=== PATIENT | male | born 1935 | race Caucasian/White ===

== ENCOUNTER 2021-04-02 15:09 | Emergency (ER) | payer MEDICARE ==
[~2021-04-02 15:09] MED LIST: ASPIRIN CHEWABL81 MG PO; COLACE100 MG PO; CRESTOR10 MG PO; FLONASE ALLER15.8 ML; INCRUSE ELLI62.5 MCG INH; KETOCONAZOLE15 GM TOP; LASIX20 MG PO; METOPROLOL SUCC50 MG PO; NEXIUM20 MG PO; NORCO 5-325 TA1 EACH PO; ROBAXIN500 MG PO; TAMSULOSIN HCL0.4 MG PO; VITAMIN D35000 UNIT PO; VITAMIN E400 UNI2 PO; ZYRTEC10 MG PO
[2021-04-02 16:14] LABS: BASOPHIL 0.3 % (0-2); EOSINOPHIL 3.3 % (0-7); HCT 44.6 % (42.0-52.0); HGB 14.1 g/dl (13.2-18.0); LYMPHOCYTE 16.9 % (15-48); MCH 29.7 pg (25.0-31.0); MCHC 31.6 g/dL (32.0-36.0); MCV 93.9 fL (78.0-100.0); MONOCYTE 8.9 % (0-12); MPV 10.2 fL (6.0-9.5); NEUTROPHIL 70.2 % (41-80); NRBC 0; PLT 156 K/uL (150-400); RBC 4.75 M/uL (4.70-6.00); RDW 13.2 % (11.5-14.0); WBC 9.9 K/uL (4.0-10.5)
[2021-04-02 16:35] LABS: ALBUMIN 3.6 g/dL (3.4-5.0); BILIRUBIN - TOTAL 0.9 mg/dL (0.2-1.0); BUN/CREAT RATIO (CALC) 12.3 RATIO; CREATININE 1.06 mg/dL (0.67-1.17); GLOBULIN (CALCULATION) 4.1 g/dL; POTASSIUM 4.4 mmol/L (3.5-5.1); TOTAL PROTEIN 7.7 g/dL (6.4-8.2)
[2021-04-02 16:36] LABS: INR 1.12 (0.9-1.2); PROTHROMBIN TIME 13.8 SECONDS (11.8-13.4)
[2021-04-02 16:37] LABS: PTT 33.9 SECONDS (24.4-34.7)
[2021-04-02] MEDS ORDERED: NITROGLYCERIN0.4 MG SL (19:21)
== END 2021-04-02 19:23 | disposition home or self-care (01) ==
LOC: FER 15:09
PROVIDERS: Internal Medicine
DX: J44.9 Chronic obstructive pulmonary disease, unspecified (principal); R07.89 Other chest pain; R53.83 Other fatigue; I44.7 Left bundle-branch block, unspecified; I25.810 Atherosclerosis of coronary artery bypass graft(s) without angina pectoris; I10 Essential (primary) hypertension; Z20.822 Contact with and (suspected) exposure to COVID-19; Z95.5 Presence of coronary angioplasty implant and graft
CPT/HCPCS: 36415; 71045; 80053; 84443; 84484; 85025; 85610; 85730; 93005; J7120; U0002